=== PATIENT | male | born 1950 | race Caucasian/White ===

== ENCOUNTER 2019-10-15 16:50 | Emergency (ER) | payer BC ==
--- NOTE | 2019-10-15 17:19 | ED Physician Documentation ---
PD HPI FOCAL NEURO - Stated complaint Stated Complaint: DOUBLE VISION - Chief complaint Chief Complaint: Heent - History obtained from History obtained from: Patient - Additional information Additional information: At about 220 this afternoon he had just finished urinating and noticed horizontal diplopia without other abnormalities that lasted for 1 to 2 minutes, now completely back to normal. Review of Systems Ten Systems: 10 systems reviewed and negative Constitutional: reports: Reviewed and negative Throat: reports: Reviewed and negative Cardiac: reports: Reviewed and negative PD PAST MEDICAL HISTORY - Past Medical History Past Medical History: Yes Cardiovascular: Hypertension, High cholesterol Derm: Rosacea - Past Surgical History Past Surgical History: No - Present Medications Home Medications: Ambulatory Orders Medication Instructions Recorded Confirmed Amlodipine Besylate [Norvasc] 10/15/19 Doxycycline Hyclate 10/15/19 Losartan/Hydrochlorothiazide 10/15/19 [Hyzaar 100-25 Tablet] Rosuvastatin Calcium 10/15/19 Sildenafil Citrate 10/15/19 10/15/19 Testosterone Cypionate 10/15/19 - Allergies Allergies/Adverse Reactions: Allergies Allergy/AdvReac Type Severity Reaction Status Date / Time No Known Drug Allergies Allergy Verified 10/15/19 17:06 - Social History Does the pt smoke?: No Smoking Status: Never smoker Does the pt drink ETOH?: No Does the pt have substance abuse?: No - Immunizations Immunizations are current?: Yes - POLST Patient has POLST: No PD ED PE NORMAL - Vitals Vital signs reviewed: Yes - General General: Alert and oriented X 3, No acute distress - Cardiac Cardiac: RRR, No murmur - Respiratory Respiratory: No respiratory distress, Clear bilaterally - Abdomen Abdomen: Non tender - Neuro Neuro: Alert and oriented X 3 NIHSS - Time Time: 17:15 - Level of Consciousness Level of consciousness: (0) Alert, Keenly responsive LOC Questions: (0) Answers both Q's correct LOC Commands: (0) Performs both correctly - Gaze Best Gaze: (0) Normal - Visual Visual: (0) No loss - Facial Palsy Facial Palsy: (0) Normal, symmetrical movement - Motor Arms (both separate) Motor Arm (right): (0) No drift Motor Arm (left): (0) No drift - Motor Legs (both separate) Motor Leg (right): (0) No drift Motor Leg (left): (0) No drift - Limb Ataxia Limb Ataxia: (0) Absent - Sensory Sensory: (0) Normal - Best Language Best Language: (0) No aphasia - Dysarthria Dysarthria: (0) Normal - Extinction and Inattention (formally neg Extinction and inattention: (0) No abnormality - Total Score/Results Total Score/Result: 0 Results - Vitals Vitals: Vital Signs - 24 hr 10/15/19 10/15/19 17:03 17:18 Heart Rate 76 66 Respiratory 18 16 Rate Blood Pressure 140/77 H 123/85 H O2 Saturation 96 98 Oxygen O2 Source Room air PD MEDICAL DECISION MAKING - ED course ED course: 69-year-old gentleman with a very transient episode of diplopia today, now gone without physical findings. CT of the head and carotid ultrasound were negative. Not sure exactly what happened, could have been a TIA. Seems too short for anything else. Departure - Departure Disposition: 01 Home, Self Care Clinical Impression: Diplopia Condition: Good Record reviewed to determine appropriate education?: Yes Instructions: ED Double Vision Comments: You were seen today for an episode of double vision that was very transient. Now everything seems okay, we did an ultrasound of your carotid arteries which was without any blockages and a CAT scan of your head which was normal. Recommend taking a baby aspirin a day and following up with your doctor, return immediately if worse.
--- NOTE | 2019-10-15 17:48 | CT Report ---
PROCEDURE: HEAD WO INDICATIONS: diplopia, resolved TECHNIQUE: Noncontrast 4.5 mm thick angled axial sections acquired from the foramen magnum to the vertex. For r adiation dose reduction, the following was used: automated exposure control, adjustment of mA and/or kV according to patient size. COMPARISON: None FINDINGS: Image quality: Excellent. CSF spaces: Basal cisterns are patent. No extra-axial fluid collections. The ventricles are symmet rich in size and shape. Brain: No intracranial bleeds or masses. There is cerebral volume loss for age, with resultant vent ricular and sulcal prominence. There are periventricular and deep white matter chronic small vessel ischemic changes. There is intracranial internal carotid artery atherosclerosis. Skull and face: Calvarium and visualized facial bones appear intact, without suspicious lesions. Sinuses: Visualized sinuses and mastoids are clear. IMPRESSION: No CT evidence of acute intracranial pathology. Reviewed by: Dimas Otero MD on 10/15/2019 5:47 PM PDT Approved by: Dimas Otero MD on 10/15/2019 5:47 PM PDT Station ID: [id number]
--- NOTE | 2019-10-15 18:51 | Ultrasound Report ---
PROCEDURE: Carotid Doppler Complete INDICATIONS: diplopia, resolved TECHNIQUE: Color and pulse Doppler interrogation was performed of both carotid systems, with image documentation and velocity measurements. COMPARISON: None. FINDINGS: Right side: Brachial blood pressure: Not measured Common carotid artery peak systolic velocity: 110.9 cm/sec. Internal carotid artery peak systolic velocity: 81.7 cm/sec. Internal carotid artery end diastolic velocity: 24.3 cm/sec. External carotid artery peak systolic velocity: 98 cm/sec. ICA/CCA peak systolic ratio: 0.74. Hale scale imaging description: Mild amount of atherosclerotic plaques are noted in distal right comm on carotid artery and proximal right internal carotid artery Percent internal carotid artery stenosis: Less than 50% . Vertebral artery: Flow direction is antegrade. Left side: Brachial blood pressure: Not measured Common carotid artery peak systolic velocity: 154.9 cm/sec. Internal carotid artery peak systolic velocity: 88.2 cm/sec. Internal carotid artery end diastolic velocity: 27.8 cm/sec. External carotid artery peak systolic velocity: 91.1 cm/sec. ICA/CCA peak systolic ratio: 0.57 . Hale scale imaging description: Mild to moderate amount of atherosclerotic plaques are noted in prox imal left internal carotid artery and distal left common carotid artery. Percent internal carotid artery stenosis: Less than 50% . Vertebral artery: Flow direction is antegrade. IMPRESSION: Less than 50% stenosis are noted in bilateral distal common carotid arteries and bilateral proximal i nternal carotid arteries. The estimate of stenosis included in the report of the imaging study was calculated using the NASCET method Reviewed by: Dimas Otero MD on 10/15/2019 6:50 PM PDT Approved by: Dimas Otero MD on 10/15/2019 6:50 PM PDT Station ID: [id number]
[2019-10-15 19:02] VITALS: BP 124/84
== END 2019-10-15 19:11 | disposition home or self-care (01) ==
LOC: ED 16:50
DX: H53.2 Diplopia (principal); I10 Essential (primary) hypertension
CPT/HCPCS: 70450; 93880; 99283; 99284